=== PATIENT | male | born 1990 | race Caucasian/White ===

== ENCOUNTER → 2020-11-19 09:27 | Outpatient (BNVA) | payer SELFPAY | PROVIDERS: Visit Provider Surgery | DX: Z20.828 Contact with and (suspected) exposure to other viral communicable diseases (principal); K62.5 Hemorrhage of anus and rectum | CPT/HCPCS: 87635 ==

== ENCOUNTER 2020-11-24 09:17 | Day surgery (SDC) | payer SELFPAY ==
[2020-11-20 14:15] VITALS: BMI 29.6
[2020-11-24 09:28] VITALS: BP 130/97; PULSE 91; RESP 18; TEMP 36.4; O2SAT 100
[2020-11-24] MEDS: sodium chloride 0.9% 1,000 ML 30 ML IV (09:37)
--- NOTE | 2020-11-24 10:36 | ANES.PREANE2 ---
Pre-Anesthetic Assessment Pre-Anesthetic Assessment: Height/Weight: Height 1.73 m Weight 88.451 kg Temp Pulse Resp BP Pulse Ox 97.6 F 91 18 130/97 100 11/24/20 09:28 11/24/20 09:28 11/24/20 09:28 11/24/20 09:28 11/24/20 09:28 Preop Diagnosis: diagnostic Proposed Procedure: Operation Date: 11/24/20 10:30 Proposed Procedures p Colonoscopy 64190 K62.5(Not Applicable) - Michel Kat MD Was Beta Alexander taken within 24 hours: N/A Last intake: Intake Last Liquid Date 11/23/20 Last Solid Date 11/22/20 Social: Social History: Alcohol and Tobacco Exam: Pre-Anes Outpt Exam: alert, oriented x 3, clear to auscultation bilaterally and regular rate & rhythm Airway: Submandibular: WNL Cervical ROM: WNL MP: 2 Dentition: Full Pulmonary: Pulmonary: COPD Anesthetic Plan: ASA status: 2 Anesthesia: MAC Risk of > 500 ml blood loss (7ml/kg in children): No Meds/Allergies Current Medications: Current Medications Generic Name Dose Route Start Last Admin Trade Name Freq PRN Reason Stop Dose Admin Sodium Chloride 1,000 mls @ 30 ml s/hr 11/24/20 09:30 11/24/20 09:37 Sodium Chloride 0.9% IV 11/25/20 09:29 30 mls/hr .Q24H NIXON Administration PFSH Anesthesia PFSH: Surgical History (Updated 11/13/20 @ 09:32 by Michel Kat MD) H/O eye surgery Family History (Updated 11/13/20 @ 09:17 by Maxine España LPN) Grandfather Cancer Social History (Updated 11/13/20 @ 09:18 by Maxine España LPN) Smoking and tobacco status: current every day smoker cigarettes Packs smoked per day: 0.5 Alcohol intake: current Alcohol intake frequency: few times a week Marital status: Single Current occupational status: employed Data Anesthesia Cardiac Studies: No Data to Display
--- NOTE | 2020-11-24 11:50 | W.PM.OPSUD ---
Surgery/Procedure H&P Update DATE OF PROCEDURE: November 24, 2020 DATE H&P PERFORMED: 11/13/20 H&P UPDATE INFORMATION: I have reviewed H&P completed within last 30 days, I have examined patient prior to procedure and No changes to prior documentation PREOP DIAGNOSIS: diagnostic PLANNED PROCEDURE: Operation Date: 11/24/20 10:30 Proposed Procedures p Colonoscopy 86830 K62.5(Not Applicable) - Michel Kat MD
[2020-11-24 12:16] VITALS: BP 117/81; PULSE 85; RESP 16; TEMP 36.4; O2SAT 93
[2020-11-24 12:30] VITALS: BP 126/81; PULSE 88; RESP 16; O2SAT 99
--- NOTE | 2020-11-24 16:37 | ANE.PACU2 ---
Inpatient post-anesthesia follow up: Airway intact: Yes Vital signs: Temperature 97.5 F Pulse Rate 88 Respiratory Rate 16 Blood Pressure 126/81 Pulse Oximetry 99 Oxygen Delivery Me thod Room Air Oxygen Flow Rate Fraction of Inspir ed Oxygen Hydration adequate: Yes Nausea and vomiting: No Pain level: 1 Mental status: Baseline
== END 2020-11-24 12:40 | disposition home or self-care (01) ==
PROVIDERS: Visit Provider Surgery
PROC: 0DJD8ZZ Inspection of Lower Intestinal Tract, Via Natural or Artificial Opening Endoscopic (ICD-10-PCS; CPT 45378; principal; 2020-11-24 10:30)
DX: K92.1 Melena (principal); K64.8 Other hemorrhoids; F17.210 Nicotine dependence, cigarettes, uncomplicated; J44.9 Chronic obstructive pulmonary disease, unspecified
CPT/HCPCS: 12345; 45380; 88305; J2704; J7030